=== PATIENT | female | born 1975 | race Caucasian/White ===

== ENCOUNTER 2025-05-11 15:51 | Emergency (ER) | payer BC, SELFPAY ==
[2025-05-11 16:00] VITALS: BP 145/96
[2025-05-11] MEDS: PEPCID 40 MG PO (16:48)
[2025-05-11] MEDS: DECADRON 10 MG PO (16:50)
--- NOTE | 2025-05-11 17:32 | ED.GENMED ---
History of Present Illness
General
Chief Complaint: Insect Sting
Source: patient and spouse
Exam Limitations: none
Time Seen by Provider: 05/11/25 16:24
Nursing documentation reviewed up to this point in time: agreed with
History of Present Illness
History of Present Illness:
49-year-old female presenting to the emergency department today after she ate a sandwich with a hornet inside. She claims that the hornet went inside her mouth and stung her to the back of her mouth and the right cheek internally. She is noted
swelling to her mouth and throat since. She has been able to tolerate by mouth and took 50 mg of Benadryl just prior to arrival. Denies any chest pain shortness of breath any abdominal pain any nausea or vomiting.
Review of Systems
Review of Systems
Allergies reviewed?: Yes
All Other Systems: ROS reviewed and negative except as documented in HPI and ROS
Phy Exam
Physical Exam
Physical Exam:
GENERAL: Alert , in no apparent distress
EYE: pupils equal and reactive
NECK: Supple, no significant adenopathy.
ENT: Slight swelling to the right sided posterior pharynx no involvement of the uvula grossly patent airway o/p clr, mmm.
CARDIAC: Regular rate and rhythm .
LUNGS: Clear breath sounds bilaterally, no acute respiratory distress, no wheezes/rales/rhonchi
ABDOMEN: Soft, without focal tenderness, no r/g, no cvat
NEUROLOGICAL: Alert and oriented, no focal neuro deficits
SKIN: Warm and dry, skin intact.
MUSCULOSKELETAL: No edema, well perfused.
PSYCH: Normal and appropriate interaction.
Course
Orders/Labs/Results
Orders:
Orders
05/11/25 16:34
Dexamethasone [Decadron] 10 mg PO NOW STA
Famotidine [Pepcid] 40 mg PO NOW STA
05/11/25 16:39
Dexamethasone Pf [Decadron] 10 mg .ROUTE .STK-MED ONE
05/11/25 16:50
Dexamethasone Pf [Decadron] 10 mg PO NOW STA
Vital Signs
Initial and Last Documented VS:
Initial Vital Signs
Temp Pulse Resp BP Pulse Ox
98.1 F 75 18 145/96 100
05/11/25 16:00 05/11/25 16:00 05/11/25 16:00 05/11/25 16:00 05/11/25 16:00
Last Documented Vital Signs
Temp Pulse Resp BP Pulse Ox
98.1 F 75 18 145/96 100
05/11/25 16:00 05/11/25 16:00 05/11/25 16:00 05/11/25 16:00 05/11/25 17:35
MDM/Problems Addressed
MDM/Problems Addressed:
49-year-old female presenting to the emergency department today after she had a sandwich that apparently had a hornet inside of it which then flew into her mouth stinging her in the back of the mouth and tonsil. Here she does have some swelling to
the soft tissue surrounding the right tonsil. Otherwise she is tolerating secretions and has a grossly patent airway. She took Benadryl prior to arrival she was additionally given steroids here as well as famotidine. Plan to observe to ensure
swelling is not progressing. Denies any known allergy to bee stings or insect stings. Patient was given steroid as well as antihistamine here observed for a few hours without any significant worsening and did appear to be having improvement.
Stable for outpatient management return precautions given.
*Pulse Oximetry
SaO2: 100
Oxygen Mode of Delivery: Room air
Patient hypoxic: no (100)
*Critical Care Note
Total Time (30-74mins, 75-104mins- exclusive of procedures): Not Applicable
ED Attending Note
-
Portions of this chart may have been created with voice recognition software.� Occasional wrong word or��sound alike� substitutions may have occurred due to the inherent limitations of voice recognition software.
Discharge Plan
Departure
Patient Disposition: Home (Routine Discharge)
Date of Disposition: 05/11/25
Time of Disposition: 18:22
Patient with high blood pressure during this ER visit?: No
Condition: Good
Covid-19: Not Applicable
Discharge Problem:
Insect bite or sting
Instructions: Insect Bites and Stings (DC)
Prescriptions:
New
cetirizine [Zyrtec] 10 mg tablet
10 mg PO BID 4 Days Qty: 8 0RF
prednisone 20 mg tablet
40 mg PO DAILY 4 Days Qty: 8 0RF
famotidine 20 mg tablet
20 mg PO BID 4 Days Qty: 8 0RF
epinephrine [Auvi-Q] 0.3 mg/0.3 mL auto-injector
0.3 mg IM Q5-15M PRN (Reason: anaphylaxis) Qty: 2 0RF
Activity Restrictions/Additional Instructions:
You came to the emergency department today after multiple stings. Here you had improvement after treatment. Please continue with the medications prescribed. Return for any worsening, new or concerning symptoms.
Interventions
Interventions:
*Risk Screen - Suicide Last Done: 05/11/25 16:00
Discharge Date and Time
Print Language: INDIAN
== END 2025-05-11 18:35 | disposition home or self-care (01) ==
LOC: EMR 15:51
PROVIDERS: EMERGENCY PHYSICIAN Emergency Medicine
DX: S00.86XA Insect bite (nonvenomous) of other part of head, initial encounter (principal); W57.XXXA Bitten or stung by nonvenomous insect and other nonvenomous arthropods, initial encounter
CPT/HCPCS: 99283